=== PATIENT | female | born 1990 | race Two or more races ===

== ENCOUNTER 2022-12-10 10:49 | Outpatient (CLI) | payer OTHER | END 2022-12-10 12:00 | disposition home or self-care (01) | LOC: PRENATAL 10:49 | PROVIDERS: ATTEND Obstetrics & Gynecology Maternal & Fetal Medicine | DX: O35.9XX0 Maternal care for (suspected) fetal abnormality and damage, unspecified, not applicable or unspecified (principal); O35.3XX0 Maternal care for (suspected) damage to fetus from viral disease in mother, not applicable or unspecified; O34.219 Maternal care for unspecified type scar from previous cesarean delivery; O99.280 Endocrine, nutritional and metabolic diseases complicating pregnancy, unspecified trimester; Z3A.23 23 weeks gestation of pregnancy ==

== ENCOUNTER 2023-02-12 10:01 | Outpatient (CLI) | payer OTHER | END 2023-02-12 10:46 | disposition home or self-care (01) | LOC: PRENATAL 10:01 | PROVIDERS: ATTEND Obstetrics & Gynecology Maternal & Fetal Medicine | DX: O26.849 Uterine size-date discrepancy, unspecified trimester (principal); O35.9XX0 Maternal care for (suspected) fetal abnormality and damage, unspecified, not applicable or unspecified; O36.8199 Decreased fetal movements, unspecified trimester, other fetus; O34.219 Maternal care for unspecified type scar from previous cesarean delivery; O99.280 Endocrine, nutritional and metabolic diseases complicating pregnancy, unspecified trimester; Z3A.32 32 weeks gestation of pregnancy ==

== ENCOUNTER 2023-03-26 07:02 | Inpatient (IN) | payer OTHER ==
[~2023-03-26] VITALS: Ht 160 cm; Wt 3.2 kg
[2023-03-26] MEDS ORDERED: SYNTHROID175 MCG PO (08:25)
[2023-03-26] MEDS ORDERED: PRENATAL TABLE1 EAC1 PO (08:26)
[2023-03-28] MEDS ORDERED: COLACE100 MG PO (12:41)
[2023-03-28] MEDS ORDERED: PERCOCET 5-3251 EACH PO (12:41)
[2023-03-28] MEDS ORDERED: SIMETHICONE80 MG PO (12:41)
[2023-03-28] MEDS ORDERED: IBU800 MG PO (12:41)
== END 2023-03-28 14:54 | disposition home or self-care (01) | DRG 785 ==
LOC: LDR 07:02 → O/R 10:02 → OB/GYN 11:24
PROVIDERS: ADMIT Student in an Organized Health Care Education/Training Program; ATTEND Student in an Organized Health Care Education/Training Program
PROC: 0UB70ZZ Excision of Bilateral Fallopian Tubes, Open Approach (ICD-10-PCS; 2023-03-26)
PROC: 4A1HXCZ Monitoring of Products of Conception, Cardiac Rate, External Approach (ICD-10-PCS; 2023-03-26)
PROC: 10D00Z1 Extraction of Products of Conception, Low, Open Approach (ICD-10-PCS; principal; 2023-03-26 10:00)
DX: O34.211 Maternal care for low transverse scar from previous cesarean delivery (principal); Z30.2 Encounter for sterilization; Z20.822 Contact with and (suspected) exposure to COVID-19; Z3A.38 38 weeks gestation of pregnancy; Z37.0 Single live birth